=== PATIENT | male | born 1945 | race Caucasian/White ===

== ENCOUNTER → 2017-08-23 | Outpatient (CLI) | payer MEDICARE ==
[~2017-08-23] MED LIST: CHOL100012 PO; None at this Time
[2017-08-23 11:40] LABS: HEMATOCRIT 50.8 % (39.2-51.8); HEMOGLOBIN 17.2 g/dL (13.7-18.0); WHITE BLOOD COUNT 6.4 x10^3/uL (3.4-10)
[2017-08-23 12:04] LABS: ASPARTATE AMINO TRANSFERASE 24 U/L (15-37); BLOOD UREA NITROGEN 14 mg/dL (7-18)
== END | disposition home or self-care (01) ==
LOC: STAR 10:06
PROVIDERS: ATTEND Urology
DX: Z01.818 Encounter for other preprocedural examination (principal); N20.0 Calculus of kidney; Z87.891 Personal history of nicotine dependence; R79.1 Abnormal coagulation profile
CPT/HCPCS: 36415; 80053; 81003; 85025; 85610; 85730; 87086; 93005

== ENCOUNTER 2017-09-06 09:46 | Day surgery (SDC) | payer MEDICARE ==
[~2017-09-06] VITALS: Ht 190.5 cm; Wt 100.9 kg
[2017-09-06 10:08] VITALS: BP 142/84
[2017-09-06] MEDS ORDERED: LACTATED RINGERS 1,000 ML IV SCH (10:11)
[2017-09-06] MEDS ORDERED: LIDOCAINE 1%, 2ML ONE (10:13)
[2017-09-06] MEDS ORDERED: LIDOCAINE 1%, 2ML SQ PRN (10:30)
[2017-09-06] MEDS ORDERED: FENTANYL PF 100 MCG/2ML ONE ×2 (12:10→15:12)
[2017-09-06] MEDS ORDERED: MIDAZOLAM 1 MG/ML, 2ML ONE (12:10)
[2017-09-06] MEDS ORDERED: ROCURONIUM 10 MG/ML,10ML ONE (12:31)
[2017-09-06] MEDS ORDERED: PROPOFOL 10 MG/ML, 20ML ONE (12:31)
[2017-09-06] MEDS ORDERED: SUCCINYLCHOLINE 20 MG/ML, 10ML ONE (12:32)
[2017-09-06] MEDS ORDERED: DEXAMETHASONE 4 MG/ML, 1ML ONE (12:58)
[2017-09-06] MEDS ORDERED: ONDANSETRON 2MG/ML, 2ML ONE (12:58)
[2017-09-06] MEDS ORDERED: hydrALAzine 20 MG/ML, 1ML IV PRN (13:00)
[2017-09-06] MEDS ORDERED: METOPROLOL 1 MG/ML, 5ML IV PRN (13:00)
[2017-09-06] MEDS ORDERED: PROMETHAZINE 25 MG/ML, 1ML IV PRN (13:00)
[2017-09-06] MEDS ORDERED: ALBUTEROL SULFATE 2.5 MG/3 ML NPPB PRN (13:00)
[2017-09-06] MEDS ORDERED: ONDANSETRON 2MG/ML, 2ML IVPush PRN (13:00)
[2017-09-06] MEDS ORDERED: HYDROcodone/APAP 7.5-325MG/15ML UDC PO PRN (13:00)
[2017-09-06] MEDS ORDERED: EPHEDRINE 50 MG/ML, 1ML IVPush PRN (13:00)
[2017-09-06] MEDS ORDERED: METOCLOPRAMIDE 5 MG/ML, 2ML IV PRN (13:00)
[2017-09-06] MEDS ORDERED: ACETAMINOPHEN 325 MG TABLET PO PRN (13:00)
[2017-09-06] MEDS ORDERED: KETOROLAC 30 MG/1 ML IV PRN (13:00)
[2017-09-06] MEDS ORDERED: CEFAZOLIN 1,000 MG ONE ×2 (13:41)
[2017-09-06] MEDS ORDERED: ESMOLOL 100 MG/10 ML ONE (13:59)
[2017-09-06] MEDS ORDERED: OMNIPAQUE 350 MG/ML, 50 ML BOTTLE IV ONE (14:18)
[2017-09-06] MEDS ORDERED: OXYcodone 5 MG/5 ML ORAL.SOL UDC ONE ×2 (15:12→15:46)
[2017-09-06] MEDS ORDERED: ACETAMINOPHEN 650 MG/20.3 ML UDC ONE (15:12)
[2017-09-06] MEDS: FENTANYL PF 100 MCG/2ML IV PRN ×2 (15:14→15:25)
[2017-09-06] MEDS: OXYcodone 5 MG/5 ML ORAL.SOL UDC PO PRN ×2 (15:22→15:47)
[2017-09-06] MEDS ORDERED: LABETALOL 5MG/ML, 20ML ONE (15:23)
[2017-09-06] MEDS: LABETALOL 5MG/ML, 20ML IV PRN ×2 (15:24→15:34)
[2017-09-06] MEDS ORDERED: KETOROLAC 30 MG/1 ML ONE (15:25)
[2017-09-06] MEDS ORDERED: HYDROmorphone 2 MG/ML, 1ML ONE (15:32)
[2017-09-06] MEDS: HYDROmorphone 1 MG/ML, 1ML IV PRN ×3 (15:35→16:00)
== END 2017-09-06 19:15 ==
LOC: OUT 09:46
PROVIDERS: ATTEND Urology
DX: N20.0 Calculus of kidney (principal); Z87.39 Personal history of other diseases of the musculoskeletal system and connective tissue; Z98.890 Other specified postprocedural states; N40.0 Benign prostatic hyperplasia without lower urinary tract symptoms
CPT/HCPCS: 52356; J0330; J0690; J1100; J1170; J1885; J2250; J2405; J2704; J3010; J3490; J7120; Q9967; C1758; C2617